=== PATIENT | male | born 1990 | race African-American/Black ===

== ENCOUNTER 2017-07-20 23:45 | Inpatient (IN) | payer OTHER ==
[~2017-07-20] VITALS: Ht 188 cm; Wt 99.8 kg
--- NOTE | 2017-07-21 00:27 | NUR ---
PT TO ER BED 12. PT BIB SELF C/O ABD PAIN WITH N/V X 1 DAY. NOTED VOMITING IN TRIAGE. 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 VSS/RESP EVEN UNLABORED/NAD NOTED/SKIN WARM AND DRY/AFEBRILE/AOX4. MD AT BEDSIDE FOR EVAL.
--- NOTE | 2017-07-21 00:35 | NUR ---
18G IV X 1 ATTEMPT TO R AC USING ASEPTIC TECH, BLOOD HANDED OVER TO THE LAB AT THE BEDSIDE. IV FLUSHES EASILY WITH NS, NO S/S INFILTRATION.
[2017-07-21] MEDS ORDERED: ONDANSETRON HCL/PF 4 MG/2 ML VIAL ONE (00:43)
[2017-07-21] MEDS ORDERED: MORPHINE SULFATE INJ 4 MG/ML DISP.SYRIN ONE ×3 (00:44→03:43)
[2017-07-21] MEDS ORDERED: FAMOTIDINE/PF INJ 20 MG/2 ML VIAL IV ONE ×2 (00:44→01:00)
[2017-07-21 00:49] LABS: BASOPHILS % (AUTO) 0.2 % (0.0-2.0); EOSINOPHILS % (AUTO) 0.1 % (0.0-6.0); HEMATOCRIT 42 % (39-51); HEMOGLOBIN 14.5 g/dL (13.5-17.5); LYMPHOCYTES # (AUTO) 1.1 /CMM (0.8-4.8); LYMPHOCYTES % (AUTO) 11.8 % (20.0-44.0); MEAN CORPUSCULAR HEMOGLOBIN 31 PG (26.0-33.0); MEAN CORPUSCULAR HGB CONC 35 g/dl (31.0-36.0); MEAN CORPUSCULAR VOLUME 90 fL (80-96); MONOCYTES # (AUTO) 0.5 /CMM (0.1-1.30); MONOCYTES % (AUTO) 5.5 % (2.0-12.0); NEUTROPHILS # (AUTO) 7.8 /CMM (1.8-8.9); NEUTROPHILS % (AUTO) 82.4 % (43.0-81.0); PLATELET COUNT (AUTO) 224 /CMM (150-450); RDW COEFFICIENT OF VARIATION 12.2 (11.5-15.0); RED BLOOD CELL COUNT(AUTO) 4.61 MIL/uL (4.5-6.0); WHITE BLOOD COUNT (AUTO) 9.4 K/uL (4.3-11.0)
[2017-07-21] MEDS ORDERED: ONDANSETRON HCL/PF 4 MG/2 ML VIAL IVP ONE (01:00)
[2017-07-21] MEDS ORDERED: MORPHINE SULFATE INJ 2 MG/ML DISP.SYRIN IV ONE ×3 (01:00→04:00)
[2017-07-21] MEDS ORDERED: IV NS 0.9% 1,000 ML BAG IV ONE ×2 (01:00→03:30)
--- NOTE | 2017-07-21 01:05 | NUR ---
XRAY AT BEDSIDE.
[2017-07-21 01:09] LABS: TROPONIN I < 0.017 ng/mL (0.00-0.056)
[2017-07-21 01:12] LABS: ALANINE AMINOTRANSFERASE 36 U/L (12-78); ALBUMIN 3.9 g/dL (3.4-5.0); ALKALINE PHOSPHATASE 45 U/L (46-116); ASPARTATE AMINOTRANSFERASE 45 U/L (15-37); BILIRUBIN,DIRECT 0.2 mg/dL (0.0-0.2); BILIRUBIN,TOTAL 0.8 mg/dL (0.2-1.0); CALCIUM, SERUM 9.2 mg/dL (8.5-10.1); CARBON DIOXIDE 26 mmol/L (21-32); CHLORIDE 102 mmol/L (98-107); GLUCOSE 121 mg/dL (74-106); LIPASE 66 U/L (73-393); POTASSIUM 3.6 mmol/L (3.5-5.1); SODIUM SERUM 140 mmol/L (136-145); TOTAL PROTEIN, SERUM 7.9 g/dL (6.4-8.2); UREA NITROGEN, BLOOD 17 mg/dL (7-18)
[2017-07-21] MEDS ORDERED: METOCLOPRAMIDE HCL 10 MG/2 ML VIAL ONE (01:21)
--- NOTE | 2017-07-21 01:23 | NUR ---
CALLED RADIOLOGY FOR CT ORDER.
--- NOTE | 2017-07-21 01:29 | NUR ---
PT TO CT VIA STRETCHER, VSS.
[2017-07-21] MEDS ORDERED: METOCLOPRAMIDE HCL 10 MG/2 ML VIAL IV ONE (01:30)
--- NOTE | 2017-07-21 03:00 | NUR ---
URINE SPECIMEN OBTAINED AND SENT TO THE LAB.
[2017-07-21] MEDS ORDERED: PIPERACILLIN /TAZOBACTAM 3.375 G in IV D5W 50 ML IV ONE (03:30)
--- NOTE | 2017-07-21 03:32 | NUR ---
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
[2017-07-21] MEDS ORDERED: VANCOMYCIN 1 GM VIAL ONE (03:33)
[2017-07-21] MEDS ORDERED: PIPERACILLIN /TAZOBACTAM 3.375 G VIAL IV ONE (03:33)
[2017-07-21] MEDS ORDERED: IOHEXOL-300 100 ML VIAL IV ONE (03:42)
[2017-07-21] MEDS ORDERED: CT SWABBABLE VALVE TRANS SET 1 EA INFUS.SET MC ONE (03:42)
[2017-07-21] MEDS ORDERED: IV NS 0.9% 250 ML IV ONE (03:42)
[2017-07-21] MEDS: VANCOMYCIN 1 GM in IV D5W 250 ML IV ONE ×2 (03:48→04:17)
--- NOTE | 2017-07-21 03:48 | NUR ---
PT TO CT VIA STRETCHER.VSS.
[2017-07-21 04:32] LABS: APPEARANCE,URINE CLEAR (CLEAR); BILIRUBIN,URINE NEGATIVE (NEGATIVE); BLOOD, URINE NEGATIVE Ery/uL (NEGATIVE); COLOR,URINE YELLOW (YELLOW); KETONES,URINE NEGATIVE (NEGATIVE); LEUKOCYTE ESTERASE ,URINE NEGATIVE (NEGATIVE); NITRITE, URINE NEGATIVE (NEGATIVE); PH,URINE 7.5 (5.0-8.0); PROTEIN,URINE NEGATIVE (NEGATIVE); UGLUCOSE NEGATIVE (NEGATIVE); UROBILINOGEN,URINE 0.2 EU/dL (0.2)
--- NOTE | 2017-07-21 04:34 | NUR ---
ROWENA GALEANA PAGED FOR THE SECOND TIME
--- NOTE | 2017-07-21 05:16 | NUR ---
ROWENA PALAFOX PAGED FOR THE THIRD TIME
--- NOTE | 2017-07-21 05:35 | NUR ---
KARLIE PAGED FOR PATIENT
--- NOTE | 2017-07-21 05:43 | NUR ---
ENDORSED TO SANDY LUNA FOR DELONTE.
--- NOTE | 2017-07-21 05:48 | NUR ---
PT TRANSPORTED VIA STRETCHER TO [facility] WITH EMT. JONI.
--- NOTE | 2017-07-21 05:50 | NUR ---
MS RN INITIAL NOTES ADMITTED 26YO MALE PT, WITH ABDOMINAL; PAIN.ALERT, AWAKE, VERBALLY RESPONSIVE.ON ROOM AIR, RESPIRATIONS EVEN, UNLABORED, NO APPARENT DISTRESS NOTED. IV SITE RAC INTACT, PATENT. COMPLAINED OF SLIGHT DISCOMFORT. BODY ASSESSMENT DONE, NO SKIN BREAKDOWN NOTED. CALL LIGHT WITHIN REACH. ATTENDED ALL NEEDS. BED LOCKED IN LOWEST POSITION. AWAITING FOR MD FOR ADMISSION ORDERS.WILL CONTINUE TO MONITOR ACCORDINGLY.
[2017-07-21 06:00] VITALS: BP 115/74
[2017-07-21] MEDS ORDERED: HYDROMORPHONE 1 MG/1 ML DISP.SYRIN IV PRN (06:30)
[2017-07-21] MEDS ORDERED: Potassium Chloride 20 MEQ in IV D5/ 0.9% NACL 1,000 ML IV PRN (06:30)
[2017-07-21] MEDS ORDERED: ONDANSETRON HCL/PF 4 MG/2 ML VIAL IV PRN (06:30)
[2017-07-21] MEDS ORDERED: ACETAMINOPHEN 325 MG TABLET PO PRN (06:30)
--- NOTE | 2017-07-21 06:35 | NUR ---
RN NOTE CALLED DR. GARRIDO, INFORMED MD REGARDING ADMISSION ORDERS. MD WITH NEW ORDERS FOR ADMISSION, ALL ORDERS NOTED AND CARRIED OUT. WILL ENDORSE TO NEXT SHIFT NURSE FOR CONTINUITY OF CARE.
--- NOTE | 2017-07-21 07:01 | NUR ---
MS RN CLOSING NOTES PT IN BED RESTING COMFORTABLY, DENIES ANY PAIN AT THIS TIME, RESPIRATIONS EVEN, UNLABORED, NO APPARENT DISTRESS NOTED. IV SITE INTACT, PATENT, CALL LIGHT WITHIN REACH, WILL ENDORSE TO DAY SHIFT FOR CONTINUITY OF CARE
[2017-07-21 08:00] VITALS: BP 121/82
--- NOTE | 2017-07-21 08:00 | NUR ---
RN NOTES RECEIVED PATIENT IN THE ROOM A/O X4, RESTING, NO ACUTE RESPIRATORY DISTRESS, V/S TAKEN STABLE, IV ON RIGHT AC ON D5NS WITH KCL 20 MEQ AT 100 ML/HR, PATIENT DENIED NAUSEA AND VOMITING AT THIS TIME, PATIENT BED REST, NPO AT THIS TIME. PATIENT USING URINAL. TEXT DR ROWENA DEMARCO FOR SURGEON CONSULTATION, CALL LIGHT WITHIN TO REACH, CONTINUED MONITORING.
[2017-07-21] MEDS: MORPHINE SULFATE INJ 4 MG/ML DISP.SYRIN IV PRN ×4 (08:31→20:57)
--- NOTE | 2017-07-21 08:31 | NUR ---
RN NOTES ADMINISTERED MORPHINE SULFATE 8 MG/ML IV PUSH FOR ABDOMINAL PAIN 02/12 PER PATIENT REQUEST, V/S TAKEN BP-121/82, P-84. FAMILY NEXT TO THE BED. CONTINUED MONITORING.
--- NOTE | 2017-07-21 10:00 | NUR ---
RN NOTES PATIENT RESTING IN THE BED, MEDICATION WERE ADMINISTERED FOR PAIN EFFECTIVE, PATIENT STILL NPO, CALL LIGHT WITHIN TO REACH, CONTINUED MONITORING.
[2017-07-21] MEDS: PIPERACILLIN /TAZOBACTAM 2.25 G in IV NS 0.9% 50 ML IV SCH ×3 (12:52→23:48)
--- NOTE | 2017-07-21 12:54 | NUR ---
RN NOTES ADMINISTERED MORPHINE SULFATE 8MG/ML IV PUSH FOR LOWER ABDOMINAL REGIONS, PER PATIENT REQUEST, V/S TAKEN BP -119/75, P-83, CALL LIGHT WITHIN TO REACH, CONTINUED MONITORING. ALSO SEEN BY SURGEON DR JACOBO.
[2017-07-21] MEDS ORDERED: FENTANYL PF 100MCG/2ML AMPUL ONE (14:21)
[2017-07-21] MEDS ORDERED: MIDAZOLAM HCL 2 MG/2ML VIAL ONE (14:21)
[2017-07-21] MEDS ORDERED: ROCURONIUM BROMIDE 50 MG/5 ML ONE (14:21)
[2017-07-21] MEDS ORDERED: SUCCINYLCHOLINE CHLORIDE 20 MG/ML VIAL ONE (14:21)
--- NOTE | 2017-07-21 14:37 | NUR ---
RN NOTES PATIENT BREAD BAKER FOR SURGERY AT THIS TIME, V/S TAKEN STABLE, PATIENT SIGN CONSENT FORM.
[2017-07-21] MEDS ORDERED: LIDOCAINE 2%-EPI 1:200,000 20 ML VIAL IJ ONE (14:42)
[2017-07-21] MEDS ORDERED: BUPIVACAINE 0.5 % PF 150 MG/30 ML VIAL ONE (14:42)
[2017-07-21] MEDS ORDERED: ANESTHESIA TRAY IN PYXIS 1 EA TRAY MC ONE (16:38)
--- NOTE | 2017-07-21 17:44 | NUR ---
RN NOTES PATIENT BACK FROM SURGERY AT THIS TIME. PATIENT AWAKE A/O X4, PATIENT ON O2-2LNC, F/C INTACT DRAIN LIGHT YELLOW OUTPUT, PATIENT HAS NO C/O PAIN AT THIS TIME, V/S TAKEN BP-119/72, P-75, T-99, O2-96 2LNC, NEEDS ATTENDED AND ANTICIPATED, CALL LIGHT WITHIN TO REACH. SAFETY PRECAUTION MAINTAINED ALL THE TIME.
[2017-07-21] MEDS: IV LR 1000 ML 1,000 ML IV PRN (18:20)
--- NOTE | 2017-07-21 18:25 | NUR ---
RN NOTES ADMINISTERED MORPHINE SULFATE 8 MG/ML IV PUSH FOR ABDOMINAL PAIN 10/13, PER PATIENT REQUEST, V/S TAKEN BP-117/70, P-71, ALSO APPLIED ICE APPLICANT MARGARETH OF INCISION, F/C DRAIN LIGHT YELLOW OUTPUT, INFUSING LR ON 150 ML/HR, CALL LIGHT WITHIN TO REACH, FAMILY NEXT TO THE BED, CONTINUED MONITORING.
--- NOTE | 2017-07-21 19:00 | NUR ---
RN NOTES PATIENT RESTING IN THE BED AT THIS TIME, MEDICATION WERE ADMINISTERED FOR PAIN EFFECTIVE, ENCOURAGED PATIENT TO USE SPIROMETER PRESCRIBED, NO ACUTE RESPIRATORY DISTRESS, PATIENT REFUSED NAUSEA AND VOMITING AT THIS TIME,CALL LIGHT WITHIN TO REACH, CONTINUED MONITORING. ENDORSED ONCOMING NURSE FOR DELONTE.
[2017-07-21 20:00] VITALS: BP 120/59
--- NOTE | 2017-07-21 20:00 | NUR ---
MS/RN OPENING NOTES RECEIVED PATIENT NI BED, ALERT, ORIENTED X3, ABLE TO VERBALIZE NEEDS. FAMILY AT BED SIDE. GUARDING IN SITE/. ABLE TO SLEEP FOR FEW HOURS DURING THE START OF SHIFT. RECEIVED ENDORSEMENT FROM AM RN FOR DELONTE. CALL LIGHTS WITHIN REACH. BED IN LOCK POSITION. WILL PROVIDE CARE AND MONITOR PAIN EFFECTIVENESS.
[2017-07-21 20:54] VITALS: BP 124/79
[2017-07-22] MEDS: IV LR 1000 ML 1,000 ML IV PRN (02:29)
[2017-07-22] MEDS: PIPERACILLIN /TAZOBACTAM 2.25 G in IV NS 0.9% 50 ML IV SCH ×3 (05:08→17:03)
[2017-07-22] MEDS: MORPHINE SULFATE INJ 4 MG/ML DISP.SYRIN IV PRN ×3 (05:17→14:48)
--- NOTE | 2017-07-22 05:18 | NUR ---
MS/RN NOTES PATIENT REPORTED PAIN ON RIGHT ABDOMEN, NEEDED PAIN MED MORPHINE 8MG/ADMINISTER IVP WILL MONITOR EFFECTIVENESS. SPIROMETER ALSO WAS USED TO RELIEVE PAIN MED.ALERTX3.VS CHECK NORMAL.
--- NOTE | 2017-07-22 06:00 | NUR ---
ms/rn notes GRAF REMOVED, PATIENT TOLERATE PROCEDURE.
--- NOTE | 2017-07-22 06:22 | NUR ---
320-2 MS/RN NOTES PATIENT IN BED, ABLE TO SLEEP DURING THE NIGHT. ON OXYGEN VIIA NC. ALERT, ORIENTED X2, CALL LIGHTS WITNIN REACH, BED ALARM ONWILL ENDORSE TO AM RN FOR DELONTE.
[2017-07-22 06:56] LABS: BASOPHILS % (AUTO) 0.4 % (0.0-2.0); HEMATOCRIT 37 % (39-51); HEMOGLOBIN 12.5 g/dL (13.5-17.5); LYMPHOCYTES # (AUTO) 1.1 /CMM (0.8-4.8); LYMPHOCYTES % (AUTO) 10.7 % (20.0-44.0); MEAN CORPUSCULAR HEMOGLOBIN 31 PG (26.0-33.0); MEAN CORPUSCULAR HGB CONC 34 g/dl (31.0-36.0); MEAN CORPUSCULAR VOLUME 93 fL (80-96); MONOCYTES # (AUTO) 0.7 /CMM (0.1-1.30); MONOCYTES % (AUTO) 6.1 % (2.0-12.0); NEUTROPHILS # (AUTO) 8.8 /CMM (1.8-8.9); NEUTROPHILS % (AUTO) 82.8 % (43.0-81.0); PLATELET COUNT (AUTO) 166 /CMM (150-450); RDW COEFFICIENT OF VARIATION 12.5 (11.5-15.0); RED BLOOD CELL COUNT(AUTO) 4.01 MIL/uL (4.5-6.0); WHITE BLOOD COUNT (AUTO) 10.6 K/uL (4.3-11.0)
[2017-07-22 06:58] LABS: CALCIUM, SERUM 7.6 mg/dL (8.5-10.1); CREATININE 1.1 mg/dL (0.6-1.3); MAGNESIUM 1.8 mg/dL (1.8-2.4); PHOSPHORUS 3.1 mg/dL (2.5-4.9); POTASSIUM 3.8 mmol/L (3.5-5.1)
--- NOTE | 2017-07-22 07:28 | NUR ---
MS RN OPENING NOTE PATIENT IS ALERT AND ORIENTED x4. RESTING COMFORTABLY IN BED AT THIS TIME. NO PAIN AT THIS TIME. NO SOB OR DISTRESS NOTED. ABLE TO COMMUNICATE NEEDS. ON ROOM AIR TOLERATING WELL AT 95%. S/P LAP APPENDECTOMY 07/21/[address] JACOBO. INCENTIVE SPIROMETER AT BEDSIDE, ENCOURAGING USE. NPO EXCEPT MEDS AT THIS TIME, WATER AND ICE CHIPS ARE OKAY PER MD, WILL FOLLOW UP WITH DIET ORDER. IV INTACT AND PATIENT WITH IV FLUIDS RUNNING AT 150 ML/HR TOLERATING WELL. AM LABS STILL PENDING. WILL CONTINUE TO MONITOR THROUGHOUT SHIFT
[2017-07-22 08:00] VITALS: BP 107/64
[2017-07-22] MEDS ORDERED: HYDR-552 PO (08:50)
[2017-07-22] MEDS ORDERED: AMOX-430 PO (08:50)
[2017-07-22] MEDS ORDERED: METOCLOPRAMIDE HCL 10 MG/2 ML VIAL IV SCH (09:00)
--- NOTE | 2017-07-22 10:40 | NUR ---
MS RN NOTE PATIENT REQUESTING PAIN MEDICATION FOR ABDOMEN SURGICAL INCISION. 01/13 ACHING. MORPHINE 8MG GIVEN. VITALS ARE WITHIN NORMAL LIMITS, INCENTIVE SPIROMETER AT BEDSIDE. WILL REASSESS PAIN AND MONITOR PATIENT FOR ADVERSE EFFECTS
--- NOTE | 2017-07-22 11:35 | NUR ---
MS RN NOTE NOTIFIED DR. JACOBO ABOUT WANTING TO DISCHARGE PATIENT. GAVE INFORMATION TO TO FOLLOW UP WITH DR. GARRIDO. WILL FOLLOW UP WITH PRIMARY MD
[2017-07-22] MEDS: METOCLOPRAMIDE HCL 10 MG TABLET PO SCH ×2 (12:25→17:03)
--- NOTE | 2017-07-22 14:50 | NUR ---
MS RN NOTE PATIENT REQUESTING PAIN MEDICATION. PAIN 8/10 ON NUMBER SCALE. MORPHINE 8 MG GIVEN. VITALS ARE WNL. INCENTIVE SPIROMETER AT BEDSIDE, ENCOURAGED TO USE. WILL REASSESS PAIN AND MONITOR PATIENT
--- NOTE | 2017-07-22 18:36 | NUR ---
MS RN CLOSING NOTE PATIENT IS ALERT AND ORIENTED x4. NO PAIN AT THIS TIME. NO SOB OR DISTRESS NOTED. CALL LIGHT WITHIN REACH AT ALL TIMES. SAFETY MEASURES IMPLEMENTED. ABLE TO COMMUNICATE NEEDS. IV REMOVED, SKIN INTACT. ALL DUE MEDICATIONS GIVEN ORDERED. ALL NURSING CARE NEEDS ATTENDED TO NEEDED. DISCHARGE INSTRUCTIONS GIVEN TO PATIENT AND FAMILY AT BEDSIDE, ALL INSTRUCTIONS REPEATED BACK. PRESCRIPTION GIVEN TO PATIENT AND FAMILY, EXPLAINED MEDICATION. ALL BELONGINGS ACCOUNTED FOR AND AT BEDSIDE. WILL ENDORSE TO FEATHER DUSTER WINDER NURSE FOR DELONTE Addendum: 07/22/17 at 1927 by HERNAN CONTEH RN PATIENT REFUSED SKIN PICTURE DOCUMENTATION FOR SURGICAL INCISION
--- NOTE | 2017-07-22 19:26 | NUR ---
DISCHARGE NOTE PT HAS ALL DISCHARGE PAPERWORK INCLUDING MEDICATION. NO SIGNS OF SOB OR DISTRESS, DENIES PAIN. LEFT DOWN STAIRS WITH VICE PRESIDENT OF ADVERTISING ESCORT VIA WHEELCHAIR. IV AND ID BAND WERE REMOVED
== END 2017-07-22 19:26 | disposition home or self-care (01) | DRG 225 ==
LOC: ER 23:50 → MED 07-21 04:39
PROVIDERS: ADMIT Internal Medicine; ATTEND Internal Medicine
PROC: 0DTJ4ZZ Resection of Appendix, Percutaneous Endoscopic Approach (ICD-10-PCS; principal; 2017-07-21 14:00)
DX: K35.80 Unspecified acute appendicitis (principal)
CPT/HCPCS: 36415; 71045-TC; 80048-TC; 80076-TC; 81000-TC; 83605-TC; 83690-TC; 83735-TC; 84100-TC; 84484-TC; 85025-TC; 87040-TC; 87070-TC; 87075-TC; 87081-TC; 88304-TC; 88305-TC; A4216; A4606; J0330; J2250; J2270; J2405; J2543; J2765; J3010; J3370; J3480; J3490; J7030; J7042; J7050; J7060; J7120; J8597; Q9967; Z7610